=== PATIENT | male | born 1970 | race Caucasian/White ===

== ENCOUNTER 2016-09-10 12:11 | Inpatient (IN) | payer MEDICAID ==
[~2016-09-10] VITALS: Ht 180.3 cm; Wt 69.4 kg
[~2016-09-10 12:11] MED LIST: BACO TOP; HIBICLENS118 ML TOP; IBUPROFEN800 MG PO; ZES10 PO
[2016-09-10 12:59] LABS: BASOPHIL % 0.5 % (0-2); PLATELET COUNT 227 x10^3mcL (130-400); RED CELL DISTRIBUTION WIDTH 13.5 % (11.5-14.5)
[2016-09-10 13:09] LABS: CALCIUM 8.8 mg/dL (8.5-10.1); CARBON DIOXIDE 29.3 mmol/L (21-32); CHLORIDE SERUM 105 mmol/L (98-107); CREATININE SERUM 0.9 mg/dL (0.7-1.3); GFR1 > 60 mL/min; GLUCOSE SERUM 86 mg/dL (74-106); POTASSIUM SERUM 4.1 mmol/L (3.5-5.1); SODIUM SERUM 139 mmol/L (136-145)
[2016-09-10 13:13] LABS: ALKALINE PHOSPHATASE 96 U/L (46-116); ALT/SGPT 20 U/L (16-63); AST/SGOT 17 U/L (15-37); BILIRUBIN TOTAL 0.58 mg/dL (0.20-1.00); TOTAL PROTEIN, SERUM 7.6 g/dL (6.4-8.2)
[2016-09-10 13:58] LABS: MAGNESIUM 2.1 mg/dL (1.8-2.4); PHOSPHOROUS 2.5 mg/dL (2.5-4.9)
[2016-09-10 14:09] LABS: T3 TOTAL 1.3 ng/mL
[2016-09-10 14:11] LABS: CHOLESTEROL/HDL RATIO 3.5
[2016-09-10 14:30] VITALS: BP 145/92
[2016-09-10 14:30] LABS: FREE T4 1.27 ng/dL (0.76-1.46); FREE THYROXINE INDEX 3.6 ug/dL (1.4-4.5)
[2016-09-10 17:51] VITALS: BP 145/92
[2016-09-10 18:21] VITALS: BP 148/82
[2016-09-10 21:47] VITALS: BP 128/88
[2016-09-11 06:10] VITALS: BP 122/78
[2016-09-11 07:44] LABS: BASOPHIL % 0.6 % (0-2); PLATELET COUNT 201 x10^3mcL (130-400); RED CELL DISTRIBUTION WIDTH 13.8 % (11.5-14.5)
[2016-09-11 08:04] LABS: CALCIUM 8.4 mg/dL (8.5-10.1); CARBON DIOXIDE 27.7 mmol/L (21-32); CHLORIDE SERUM 107 mmol/L (98-107); CREATININE SERUM 0.9 mg/dL (0.7-1.3); GFR1 > 60 mL/min; GLUCOSE SERUM 84 mg/dL (74-106); POTASSIUM SERUM 4.4 mmol/L (3.5-5.1); SODIUM SERUM 139 mmol/L (136-145)
[2016-09-11 09:38] VITALS: BP 114/72
[2016-09-11 13:06] LABS: microscopic required? NO
[2016-09-11 13:32] VITALS: BP 113/79
[2016-09-11 13:35] LABS: urine erythrocyte NEGATIVE (NEGATIVE)
[2016-09-11 14:21] LABS: AMPHETAMINE QUAL UR NONE DETECTED (NEG <=1000)
[2016-09-11 17:11] VITALS: BP 133/101
[2016-09-11 19:40] VITALS: BP 129/80
[2016-09-12 03:58] LABS: BASOPHIL % 0.5 % (0-2); PLATELET COUNT 187 x10^3mcL (130-400); RED CELL DISTRIBUTION WIDTH 13.6 % (11.5-14.5)
[2016-09-12 04:12] LABS: CALCIUM 8.2 mg/dL (8.5-10.1); CARBON DIOXIDE 28.4 mmol/L (21-32); CHLORIDE SERUM 106 mmol/L (98-107); CREATININE SERUM 0.9 mg/dL (0.7-1.3); GFR1 > 60 mL/min; GLUCOSE SERUM 87 mg/dL (74-106); MAGNESIUM 1.8 mg/dL (1.8-2.4); PHOSPHOROUS 3.3 mg/dL (2.5-4.9); POTASSIUM SERUM 4.2 mmol/L (3.5-5.1); SODIUM SERUM 139 mmol/L (136-145)
[2016-09-12 06:14] VITALS: BP 114/73
[2016-09-12 09:42] VITALS: BP 114/73
[2016-09-12] MEDS ORDERED: ASPIR 8181 MG PO (10:03)
[2016-09-12] MEDS ORDERED: LIPITOR20 MG PO ×2 (10:04)
[2016-09-12] MEDS ORDERED: ZOFRAN ODT4 MG SL (10:05)
== END 2016-09-12 10:15 | disposition home or self-care (01) | DRG 203 ==
LOC: ED 12:11 → DU 13:40 → MU 09-12 07:44
PROVIDERS: Family Medicine; ADMIT Family Medicine
DX: M94.0 Chondrocostal junction syndrome [Tietze] (principal); I36.1 Nonrheumatic tricuspid (valve) insufficiency; I10 Essential (primary) hypertension; F31.9 Bipolar disorder, unspecified; R55 Syncope and collapse; E78.2 Mixed hyperlipidemia; F12.10 Cannabis abuse, uncomplicated; Z87.442 Personal history of urinary calculi; Z68.21 Body mass index [BMI] 21.0-21.9, adult; F17.210 Nicotine dependence, cigarettes, uncomplicated
CPT/HCPCS: 80307; 83880; 84439; G0480; J1644; J1885; J2270; J2405; J7030; Q0092; Q9967